=== PATIENT | female | born 1960 | race Caucasian/White ===

== ENCOUNTER 2016-09-21 10:19 | Day surgery (SDC) | payer OTHER ==
[~2016-09-21] VITALS: Ht 177.8 cm; Wt 108.9 kg
[~2016-09-21 10:19] MED LIST: ASPI-973 PO; BUPR150T12 PO; CLON0.1T PO; DOCU-41 PO; EXEN2VIA SUBQ; INSU100I13 SUBQ; LISI-571 PO; LOVA10TA PO; Lactated Ringer's 1,000 ML IV ONE; NORT10CA PO; OMEP10CA4 PO; OXYC-284 PO
[2016-09-21] MEDS ORDERED: Propofol 10,000 mCg/mL 20 mL Inj ONE (10:20)
[2016-09-21 10:43] VITALS: BP 131/75; PULSE 82; RESP 12; O2SAT 97
[2016-09-21] MEDS ORDERED: Lactated Ringer's 1,000 ML IV SCH (11:27)
--- NOTE | 2016-09-21 11:27 | PCM.HPANE ---
Patient Data Date of Service: September 21, 2016 Surgeon Admitting Provider: Attending Provider:Latricia Morgan MD Primary Care Physician:Brent Patel MD Other Provider:Shae Bermudez Anesthesia Reason for Visit Adenomatous Polyp Of Colon Ht/WT & BMI Height (Feet): 5 Height (Inches): 10.00 Weight (Kilograms): 108.860 Body Mass Index 34.00 Allergies Coded Allergies: amoxicillin (Verified Allergy, Severe, angio edema, 09/21/16) rofecoxib (Verified Allergy, Severe, SWELLING, 09/21/16) Past Anesthesia History Anesthesia History: Denies:: Abnormal Airway, Anesthesia Reactions, Difficult Intubation, Fam Anesthesia Reaction, Fam Malignant Hypertherm, Malignant Hyperthermia Diabetes History Hx Diabetes?: Yes Current Bedside Blood Glucose: 181 MRSA MRSA: No Medications Reported Medications Nortriptyline 10 Mg Bnnmmps84 Mg PO HS 09/20/16 Aspirin 81 Mg Dosuzt08 Mg PO DAILY Ref 0 09/20/16 Omeprazole 10 Mg Capsule.dr10 Mg PO DAILY Ref 0 12/03/14 Lovastatin 10 Mg Mpzrkv04 Mg PO HS #30 TABLET Ref 0 12/03/14 Lisinopril 5 Mg Tablet5 Mg PO DAILY #30 TABLET Ref 0 12/03/14 Insulin Glargine (Lantus U100 Solostar Insulin Pen)100 Unit/1 Ml Insuln.pen50 Unit SUBQ HS #1 PENINJ Ref 0 12/03/14 Bupropion ER 150 Mg Tablet.er150 Mg PO BID Ref 0 12/03/14 Discontinued Reported Medications Exenatide Inj (Bydureon Inj)2 Mg Vial2 Mg SUBQ Q 7 DAYS 09/20/16 Clonidine 0.1 Mg Tablet0.1 Mg PO BID Ref 0 12/03/14 Discontinued Scripts Docusate Sodium (Colace)100 Mg Uvtrcix070 Mg PO BID PRN For Constipation #28 CAPSULE Ref 0 Prov:Vu Arreguin MD 12/05/14 Oxycodone HCl/Acetaminophen 5-325 (Percocet 5-325)1 Each Tablet1-2 Each PO Q4H FOR PAIN #30 TABLET Ref 0 Prov:Vu Arreguin MD 12/05/14 History History of ENT Problems?: No HEENT History: Denies:: Abnormal Airway Difficult Intubation Dysphagia Hearing Problem Denture Type: None Teeth Condition: Within Normal Limits Hx of Heart Problems?: No Cardiovascular History: Denies:: Chest Pain Congestive Heart Failure Edema Heart Murmur Irregular Heartbeat Pacemaker Thrombophlebitis Hx of Respiratory Problem?: Yes Respiratory History: Positive for:: Dyspnea (chronic bronchitis) Pneumonia (several times) Use of C-PAP Machine Denies:: Asthma COPD Emphysema Hemoptysis Tuberculosis Hx Neurologic Problems?: No Neurological History: Denies:: CVA Hx of GI Problems?: Yes Hx of Problems?: Yes Genitourinary History: Positive for:: Kidney Stones Denies:: HX of Hemodialysis Urinary Tract Infection Female Hx: Positive for:: Endometriosis (lesions removed) Denies:: Currently Pelvic Inflammatory Problems with Breasts? Hx Musculoskeletal Problems?: No Musculoskeletal History: Denies:: Fibromyalgia Joint Replacement Hx of Psycho/Social Problems?: No Psycho Social History: Denies:: Anxiety Hx Depression Hx Surgeries?: Yes (RIGHT FOOT RIGHT SHOULDER RIGHT OVARY GALLBLADDER) Hx Any Other Health Problems?: No Other History: Positive for:: Hospitalization (VTE L leg) Denies:: Cancer Thyroid Disease History Blood Transfusions: Denies:: Blood Transfusions Hx Diabetes: YesBedside Blood Glucose: 181 Other Pertinent History: PATIENT STATES USES LISINOPRIL TO PREVENT KIDNEY DAMAGE FROM DIABETES Hx Alcohol Use: Yes (OCC)Hx Substance Use: Yes (marijuana) Smoking Status: Current Some Day Smoker Have You Smoked inLast 12 mo: No Stop/Bang Treated for Sleep Apnea?: Yes Do You Have a CPAP Machine?: No Risk Assessment Category Category 1A: Patient has history of documented sleep apnea, and HAS NOT received any narcotic, sedative or anesthesia administration during this stay. Category 1B: Patient has history of documented sleep apnea, and HAS received any narcotic , sedative or anesthesia administration during this stay Category 2: Patient has SUSPECTED Obstructive Sleep Apnea, and HAS received any narcotic , sedative or anesthesia administration during this stay. Category 3: Patient has SUSPECTED Obstructive Sleep Apnea and HAS NOT received narcotic, sedative or anesthesia administration during this stay. Category 4: Outpatient in Procedural Areas with known sleep apnea or who screen positive for High Risk via the STOP/BANG questionnaire. Exam Exam Vital Signs Vital Signs Date Time Temp Pulse Resp B/P Pulse Ox O2 Delivery O2 Flow Rate FiO2 09/21/16 10:43 36.1 82 12 131/75 97 Room Air General Appearance: Alert, Oriented X3 HEENT/AIRWAY: MP 2 Lungs: Clear to Auscultation Heart: Exam Unremarkable Meds/Labs/Diagnostics Admission Meds Current Medications Lactated Ringer's (Lr) 1,000 ml @ 10 mls/hr Q24H ONCE IV Last administered on 09/21/16t 10:53; Start 09/21/16 at 06:00; Stop 09/22/16 at 05:59 Bedside Blood Glucose: 181 Plan Impression Patient chart reviewed, patient interviewed and anesthestic plan with risks, benefits, and alternatives discussed, and informed consent obtained. NPO per Anesth. Guidelines: Yes ASA Physical Status: ASA2 Mod Systemic Disease Anesthetic Plan: MAC Bene/Risks/Altern/Consents: Yes HP Complete Prior to Induction: Yes Tripp Paula MD September 21, 2016 11:27
[2016-09-21] MEDS ORDERED: Ondansetron 2 mg/mL 2 mL Inj IVPUSH PRN (11:30)
[2016-09-21] MEDS ORDERED: MetoCLOpramide 5 mg/mL 2 mL Inj IVPUSH PRN (11:30)
[2016-09-21 11:36] VITALS: BP 111/74; PULSE 82; RESP 14; O2SAT 97
[2016-09-21 11:46] VITALS: BP 130/79; PULSE 71; RESP 14; O2SAT 98
--- NOTE | 2016-09-21 11:59 | PCM.ANEP1 ---
Post Anesthesia Phase 1 PACU Phase 1 Assessment Date of Service: September 21, 2016 Vital Signs Vital Signs Date Time Temp Pulse Resp B/P Pulse Ox O2 Delivery O2 Flow Rate FiO2 09/21/16 11:46 71 14 130/79 98 Room Air 09/21/16 11:36 82 14 111/74 97 Room Air 09/21/16 10:43 36.1 82 12 131/75 97 Room Air Level of Alertness: Awake, talking Pain: No Nausea or Vomiting: No Cardiovascular Function and Hy: Yes Lungs: Clear to Auscultation Complications: No Follow up Care: No Tripp Paula MD September 21, 2016 11:59
--- NOTE | 2016-09-21 13:45 | ENDO ---
[address] [address] ENDOSCOPY PROCEDURE PATIENT: CHADWICK DONOVAN : 1960 MR#: [id number] ADMIT: 09/21/2016 JOB ID: [id number] DATE OF SERVICE: 09/21/2016 PROCEDURE PERFORMED: Colonoscopy. INDICATIONS: History of colon polyps. ASA CLASSIFICATION, MALLAMPATI SCORE AND MEDICATIONS: The patient's ASA classification, Mallampati score and medications as per anesthesia note. INSTRUMENT USED: [id number]. PREPARATION QUALITY: Fair. PROCEDURE DETAILS: After informed consent was obtained, the patient was brought into the GI suite, where she was placed on oxygen via nasal cannula and monitored with continuous pulse oximeter, telemetry, and blood pressure monitoring. A time-out was performed. Then, she was placed in the left lateral decubitus position and medications were administered for sedation. Digital rectal exam was performed which was unremarkable. The colonoscope was then inserted into the rectum and advanced under direct visualization to the cecum, which was identified by the presence of the ileocecal valve and appendiceal orifice. Once the cecum was reached, the colonoscope was withdrawn back into the rectum, as the mucosa and lumen were examined. In the rectum, retroflexion was performed. Following retroflexion, remaining air in the rectum was suctioned, and procedure was completed. FINDINGS: Normal exam from rectum to cecum. IMPRESSION: Normal colonoscopy. RECOMMENDATIONS: Repeat colonoscopy in five years, sooner if symptoms dictate. COMPLICATIONS: None. ESTIMATED BLOOD LOSS: Zero.
== END 2016-09-21 23:59 | disposition home or self-care (01) ==
LOC: END 10:19
PROVIDERS: ATTEND Internal Medicine Gastroenterology
DX: Z12.11 Encounter for screening for malignant neoplasm of colon (principal); Z86.010 Personal history of colon polyps; G47.33 Obstructive sleep apnea (adult) (pediatric); E11.9 Type 2 diabetes mellitus without complications; K21.9 Gastro-esophageal reflux disease without esophagitis; E78.00 Pure hypercholesterolemia, unspecified; F12.90 Cannabis use, unspecified, uncomplicated; F17.210 Nicotine dependence, cigarettes, uncomplicated; Z79.82 Long term (current) use of aspirin; Z79.4 Long term (current) use of insulin; Z87.442 Personal history of urinary calculi
CPT/HCPCS: G0105; J7120